=== PATIENT | female | born 1950 | race Caucasian/White ===

== ENCOUNTER 2024-10-27 11:01 | Observation (INO) ==
--- NOTE | 2024-09-25 09:51 | PAT Medication Instructions ---
Medication Instructions Date of Service September 25, 2024 Home Medications calcium carbonate 600 mg PO BID etanercept 50 mg/mL (1 mL) subcutaneous syringe (Enbrel) 50 mg subcut WK fluticasone propionate 50 mcg/actuation nasal spray,suspension 2 spray intranasal QAM hydroxychloroquine 200 mg tablet 400 mg PO QAM levothyroxine 25 mcg capsule 25 mcg PO QAM montelukast 10 mg tablet 10 mg PO QPM pantoprazole 40 mg tablet,delayed release 40 mg PO QAM cholecalciferol (vitamin D3) 25 mcg (1,000 unit) capsule 25 mcg PO QPM multivitamin 1 tab PO QAM ASK your prescriber and surgeon etanercept 50 mg/mL (1 mL) subcutaneous syringe (Enbrel) 50 mg subcut WK DO NOT take the morning of surgery calcium carbonate 600 mg PO BID multivitamin 1 tab PO QAM Take morning of surgery With a small sip of water, OTHERWISE NOTHING TO EAT OR DRINK AFTER MIDNIGHT: fluticasone propionate 50 mcg/actuation nasal spray,suspension 2 spray intranasal QAM hydroxychloroquine 200 mg tablet 400 mg PO QAM levothyroxine 25 mcg capsule 25 mcg PO QAM pantoprazole 40 mg tablet,delayed release 40 mg PO QAM Take evening before surgery calcium carbonate 600 mg PO BID montelukast 10 mg tablet 10 mg PO QPM cholecalciferol (vitamin D3) 25 mcg (1,000 unit) capsule 25 mcg PO QPM Other Notes If you have any questions please call us at [phone] or [phone] or [phone] or [phone]
--- NOTE | 2024-10-06 10:11 | Anesthesiology Consultation ---
Date of Service October 06, 2024 Assessment & Plan (1) Encounter for pre-operative examination: - Infectious disease screening: Per assessment on 10/06/24- No known recent infectious disease contacts or current infectious disease symptoms. - Outpatient joint assessment: Pt currently scheduled for inpatient pathway. If surgeon requests review for outpatient joint pathway, patient is not recommended candidate for outpatient joint program from anesthesia standpoint based on available information. - Preop EKG: Done 10/06/24 [facility]. Notes Septal infarct, age undetermined. 2020 Echo received. No comparison EKGs available per chart review. Note written to PCP regarding preop EKG- Awaiting response (Dr. Berta Soliz). Patient otherwise acceptable risk for surgery. Chart Review Chart Review: Patient seen in Pre Admission Testing Teaching & Discussion Pre-Anesthesia Teaching/Discussion Notes: Instructed NPO after midnight before surgery,except medications with 15 cc of water. Medication instructions provided according to the PAT guidelines. History Surgery Operation Date: 10/27/24 08:50 Proposed Procedures p Left Total Knee Arthroplasty - Balaji Hay MD Height/Weight Height: 5 ft 2 in Weight: 58.8 kg Allergies Allergy/AdvReac Type Severity Reaction Status Date / Time psyllium [From Metamucil] Allergy Severe Anaphylaxis Verified 09/11/24 08:06 tetracycline Allergy Intermediate Rash Verified 09/11/24 08:06 alendronate sodium Allergy Mild Nausea, Verified 10/06/24 11:33 [From Fosamax] stomach burning, muscle pain infliximab [From Remicade] Allergy Mild Chills, Verified 10/06/24 11:33 fatigue influenza virus vacc Allergy Mild Joint Verified 10/06/24 11:33 trivalent, split Pain, [From Fluzone] fatigue, swelling latex Allergy Mild Rash, Verified 10/06/24 11:33 fatigue, swelling, "cracked hands" with gloves leflunomide [From Arava] Allergy Mild Fatigue, Verified 10/06/24 11:33 mental changes, weight loss, elevated LFTs magnesium oxide Allergy Mild Rash, Verified 10/06/24 11:33 pustules methotrexate Allergy Mild Diarrhea, Verified 10/06/24 11:33 nausea, aches/pains nickel Allergy Mild Rash Verified 09/11/24 08:24 pilocarpine Allergy Mild Dizziness, Verified 10/06/24 11:33 nausea, fatigue, shakiness gold Au 198 AdvReac Mild Rash Verified 09/11/24 08:24 sulfasalazine AdvReac "Not Verified 10/06/24 11:33 effective" tocilizumab [From Actemra] AdvReac Elevated Verified 10/06/24 11:33 LFTs, "worsened" symptoms Medications Home Medications Medication Instructions Recorded Confirmed Last Taken calcium carbonate 600 mg PO BID 02/14/23 09/11/24 Unknown etanercept 50 mg/mL (1 mL) 50 mg subcut WK 02/14/23 09/11/24 Unknown subcutaneous syringe (Enbrel) fluticasone propionate 50 2 spray intranasal QAM 02/14/23 09/11/24 Unknown mcg/actuation nasal spray,suspension hydroxychloroquine 200 mg tablet 400 mg PO QAM 02/14/23 09/11/24 Unknown levothyroxine 25 mcg capsule 25 mcg PO QAM 02/14/23 09/11/24 Unknown montelukast 10 mg tablet 10 mg PO QPM 02/14/23 09/11/24 Unknown pantoprazole 40 mg tablet,delayed 40 mg PO QAM 02/14/23 09/11/24 Unknown release cholecalciferol (vitamin D3) 25 25 mcg PO QPM 08/10/24 09/11/24 Unknown mcg (1,000 unit) capsule multivitamin 1 tab PO QAM 08/10/24 09/11/24 Unknown amlodipine 2.5 mg tablet 2.5 mg PO DAILY 10/06/24 10/06/24 Unknown Past Medical History Medical History GERD (gastroesophageal reflux disease) History of valvular heart disease Echo 11/2020: Minimal AR/MR. Mild central TR. Trivial NC. Hx of colonic polyps Hypothyroidism Left knee DJD Rheumatoid arthritis Follows with Dr. White/[facility] rheumatology + [facility] "Well controlled" Seasonal allergies Exercise / Class Metabolic Activity III < 4 Walking/Shop/Light housework Past Surgical History Surgical History History of carpal tunnel release (2002) Right Hx of colonoscopy with polypectomy Hx of hysterectomy (1985) Hx of tonsillectomy As child Past Anesthesia History No Hx of Anesthesia Complications and No Family Hx of Anesthesia Complications History of PONV No Hx of PONV and No Hx of Motion Sickness Social History Smoking Status: Former smoker Do You Dip or Chew Tobacco: No Smoking End Date: Quit 1984 Hx Alcohol Use: Yes Alcohol type: wine alcohol intake frequency: a few times a month Hx Substance Use: No substance use type: does not use Review of Systems Patient denies chest pain, shortness of breath, fever, chills, cough, wheezing, palpitations. Physical Exam Vital Signs BP 147/84 P 80 TEMP 97.7 SP02 99%RA RESP 16 Physical Full cervical extension range of motion. Full TMJ range of motion. TMD 3 finger breaths Mallampati Score III Dentition: missing molar, + crown Lungs: clear throughout to auscultation Cardiac: regular rate and rhythm, I-II/ systolic murmur Spine: normal Carotid arteries: negative bruit Extremities: no LE edema Lab Results Anesthesia Preop Results Results Anesthesia Widget: WBC 4.96 K/ul (4.8-10.8) 10/06/24 Hgb 13.0 g/dl (12.0-16.0) 10/06/24 Hct 38.1 % (37.0-47.0) 10/06/24 Plt 248 K/uL (130-400) 10/06/24 Na 135 mmol/L (136-145) L 10/06/24 K 5.1 mmol/L (3.5-5.1) 10/06/24 Cl 99 mmol/L (98-107) 10/06/24 CO2 30 mmol/L (21-32) 10/06/24 BUN 25 mg/dl (6-23) H 10/06/24 Creat 0.76 mg/dl (0.6-1.2) 10/06/24 Glucose Level 95 mg/dl (70-99(Fasting)) 10/06/24 PT 10.9 Seconds (9.0-12.0) 10/06/24 PTT 30 Seconds (21-31) 10/06/24 INR 1.0 (0.9-1.1) 10/06/24 Blood Type A Positive 10/06/24 Antibody Screen NEGATIVE 10/06/24 Testing Electrocardiogram Date: 10/06/24 NSR with sinus arrhythmia at 67bpm. LAFB. Minimal voltage criteria for LVH, may be normal variant. Septal infarct, age undetermined. Chest X-Ray Date: 10/06/24 FINDINGS: Heart size and pulmonary vasculature are normal. No consolidation or pleural effusion. Lungs are hyperexpanded. There is mild scoliosis. IMPRESSION: No acute findings. Echocardiogram Date: 11/13/20 Indication listed on report: Murmur Mildly increased LV wall thickness. Grade 1 diastolic dysfunction. Minimal AR/MR. Mild central TR. Trivial NC. Other Testing Cervical spine x-ray Date: 10/06/24 FINDINGS: There is severe diffuse disc space narrowing. There is grade 1 anterolisthesis of C5 on 6 and C6 on 7. No fracture seen. No abnormal translation seen with flexion and extension. IMPRESSION: Cervical spine degenerative changes.
--- NOTE | 2024-10-19 17:33 | History & Physical Report ---
Date of Service October 19, 2024 Assessment & Plan (1) Left knee DJD: 74-year-old female with underlying rheumatoid disease with advanced left knee arthritis. She has failed conservative measures. She is having trouble getting around as a result of pain. She she like to have her left knee fixed. Plan: Will baljit take up to the operating room to do a left knee replacement. The risks and benefits of this procedure explained. Informed consent has been obtained. Her EKG showed a slight abnormality and she is getting clearance from her medical doctor. Assuming you are medically optimized we will proceed with a total knee arthroplasty. She is planned to be discharged to home with her 's assistance. She will hold her Enbrel about 2 weeks preop. Will use aspirin for DVT prophylaxis. (2) Rheumatoid arthritis: (3) Hypothyroidism: (4) GERD (gastroesophageal reflux disease): (5) History of valvular heart disease: History of Present Illness Chief Complaint: . Left knee pain. Primary Care Provider: NO PCP . The patient is a 74-year-old female with longstanding rheumatoid disease who presents now for surgical treatment left knee. She has about a 10-year history of increasing left knee pain discomfort described to gotten worse over time. She has been recently admitted to the hospital due to ambulatory dysfunction as a result. She is having more more difficulty getting around. She has failed conservative treatment. She is doing extensive her treatment for rheumatoid disease. She is using a cane to get around as a result her disability. She is ready to have her knee fixed. Allergies Allergy/AdvReac Type Severity Reaction Status Date / Time psyllium [From Metamucil] Allergy Severe Anaphylaxis Verified 09/11/24 08:06 tetracycline Allergy Intermediate Rash Verified 09/11/24 08:06 alendronate sodium Allergy Mild Nausea, Verified 10/06/24 11:33 [From Fosamax] stomach burning, muscle pain infliximab [From Remicade] Allergy Mild Chills, Verified 10/06/24 11:33 fatigue influenza virus vacc Allergy Mild Joint Verified 10/06/24 11:33 trivalent, split Pain, [From Fluzone] fatigue, swelling latex Allergy Mild Rash, Verified 10/06/24 11:33 fatigue, swelling, "cracked hands" with gloves leflunomide [From Arava] Allergy Mild Fatigue, Verified 10/06/24 11:33 mental changes, weight loss, elevated LFTs magnesium oxide Allergy Mild Rash, Verified 10/06/24 11:33 pustules methotrexate Allergy Mild Diarrhea, Verified 10/06/24 11:33 nausea, aches/pains nickel Allergy Mild Rash Verified 09/11/24 08:24 pilocarpine Allergy Mild Dizziness, Verified 10/06/24 11:33 nausea, fatigue, shakiness gold Au 198 AdvReac Mild Rash Verified 09/11/24 08:24 sulfasalazine AdvReac "Not Verified 10/06/24 11:33 effective" tocilizumab [From Actemra] AdvReac Elevated Verified 10/06/24 11:33 LFTs, "worsened" symptoms Home Medications Medication Instructions Recorded Confirmed Type calcium carbonate 600 mg PO BID 02/14/23 09/11/24 History etanercept 50 mg/mL (1 mL) 50 mg subcut WK 02/14/23 09/11/24 History subcutaneous syringe (Enbrel) fluticasone propionate 50 2 spray intranasal QAM 02/14/23 09/11/24 History mcg/actuation nasal spray,suspension hydroxychloroquine 200 mg tablet 400 mg PO QAM 02/14/23 09/11/24 History levothyroxine 25 mcg capsule 25 mcg PO QAM 02/14/23 09/11/24 History montelukast 10 mg tablet 10 mg PO QPM 02/14/23 09/11/24 History pantoprazole 40 mg tablet,delayed 40 mg PO QAM 02/14/23 09/11/24 History release cholecalciferol (vitamin D3) 25 25 mcg PO QPM 08/10/24 09/11/24 History mcg (1,000 unit) capsule multivitamin 1 tab PO QAM 08/10/24 09/11/24 History amlodipine 2.5 mg tablet 2.5 mg PO DAILY 10/06/24 10/06/24 History Past Med/Surg History Problem List Encounter for pre-operative examination Left knee DJD Left knee pain Hammertoe of left foot Medical History History of valvular heart disease Echo 11/2020: Minimal AR/MR. Mild central TR. Trivial [place]. GERD (gastroesophageal reflux disease) Seasonal allergies Rheumatoid arthritis Follows with Dr. White/Sh[facility]ana rheumatology + [facility] "Well controlled" Left knee DJD Hx of colonic polyps Hypothyroidism Surgical History Hx of colonoscopy with polypectomy History of carpal tunnel release (2002) Right Hx of hysterectomy (1985) Hx of tonsillectomy As child Social History Smoking Status: Former smoker Second Hand Exposure: No; Do You Dip or Chew Tobacco: No; Hx Alcohol Use: Yes Alcohol type: wine Hx Substance Use: No Preferred Language: Frisian Communication Ability: Effective Extension Course Counselor Required: No Beliefs That Will Affect Care: None Current Living Situation: Spouse Feels Safe at Home: Yes Assistive Devices: Cane, Denture - Upper, Glasses and Hearing Aid - Bilateral Review of Systems All systems reviewed & are unremarkable except as noted in HPI & below. Physical Exam . Physical examination reveals a pleasant middle-age female per looks been pretty good health. Examination of the left knee reveals a patient ambulates with use of a cane. She had valgus alignment to her knee which is increased with weightbearing. Range of motion about 10 degrees short of full extension to 120 Riese flexion. A moderate-sized knee joint effusion. No particular pain with hip hip motion. She is neurologically intact. Constitutional WD/WN, vitals as above Respiratory normal respiratory effort, lungs clear to auscultation Cardiovascular RRR, no murmur, no edema Gastrointestinal (Abdomen) normal bowel sounds, soft, nontender, no hepatosplenomegaly Results & Data Results & Data Laboratory Results . Diagnostic Findings . X-rays of the left knee were reviewed. She has advanced lateral compartment DJD. She has complete loss of her lateral joint space. Got diffuse osteopenia and chondrocalcinosis. PG Care Time/CCT Total # of Minutes Spent Total Time Spent with Patient: Total time spent is greater than 50% in coordination of care (as documented) at patient's floor/unit and/or counseling patient: Coding Level of Care Code None Diagnoses Left knee DJD M17.12 Rheumatoid arthritis M06.9 Hypothyroidism E03.9 GERD (gastroesophageal reflux disease) K21.9 History of valvular heart disease Z86.79
[~2024-10-27 11:01] MED LIST: BUPIVACAINE 0.25% PF 30 ML VIAL ONE; BUPIVACAINE 0.5 % 5 MG/1 ML PF 10ML VIAL ONE; LIDOCAINE 2% 2 ML VIAL/AMP(20MG/ML) INFIL ONE; MIDAZOLAM HCL 1 MG/ML 2ML VIAL ONE; PROPOFOL IV EMULSION 10 MG/ML 100 ML VIAL IV ONE
[2024-10-27] MEDS: LR 60ML/HR IV SCH (11:35)
[2024-10-27] MEDS: LR 500ML BOLUS, THEN 15ML/HR IV SCH (11:35)
[2024-10-27] MEDS: ACETAMINOPHEN 500 MG TAB PO SCH ×2 (11:36→20:39)
[2024-10-27] MEDS: CeleBREX 200 MG CAP PO SCH (11:36)
[2024-10-27] MEDS: METOCLOPRAMIDE HCL 10 MG TABLET PO SCH (11:36)
[2024-10-27] MEDS: dexAMETHasone**PF** 10 MG/ML VIAL IV SCH (11:37)
[2024-10-27] MEDS: FAMOTIDINE 20 MG TAB PO SCH (11:37)
[2024-10-27] MEDS ORDERED: ONDANSETRON INJ 2 MG/ML 2 ML VIAL IV PRN ×2 (11:52→16:05)
[2024-10-27] MEDS ORDERED: ATROPINE SULFATE 0.1 MG/ML 10ML SYR IV PRN (11:52)
--- NOTE | 2024-10-27 12:33 | History & Physical Bridge Note ---
Date of Service October 27, 2024 History & Physical Bridge Note I have examined the patient, reviewed the History & Physical and in the interval since the performance of the History & Physical I have noted the following changes of clinical significance: no changes noted
[2024-10-27] MEDS: ORTHO JOINT ANESTHETIC ONE (13:19)
[2024-10-27] MEDS ORDERED: PHENYLEPHRINE 100MCG/ML 5ML SYR ONE (13:39)
[2024-10-27] MEDS: ROPIV 0.5% 246mg, Ketorolac 30mg, EPINEPHrine 0.5mg in NSS INFIL SCH (14:03)
--- NOTE | 2024-10-27 14:42 | Operative Report ---
PG Post Operative Report Pre & Post Diagnosis Operation Date: 10/27/24 12:30 Pre-Op Diagnosis: Left knee degenerative joint disease Post-Op Diagnosis: Left knee degenerative joint disease I identified the patient and participated in the time-out.: Yes Procedure Operation Date: 10/27/24 12:30 Actual Procedures p Left Total Knee Arthroplasty(Left) - Balaji Hay MD Surgeon Balaji Hay MD Food Service Driver True Da Silva PA-C Estimated Blood Loss 50 Findings Consistent with Post-Op Diagnosis Specimens Left knee sent for pathology. Anesthesia Type Spinal MAC Complications none Disposition Accompanied Patient To Recovery: No Description of Procedure Operative implants consist of: 1 Bell & Nephew journey 2 size 4 left posterior stabilized femoral component. 2. Bell [employer] Nephew journey 2 size 3 tibial tray. 3. 10 mm posterior stabilized polyethylene insert. 4. 29 x 9 all poly patella. The patient was taken the op room, identified, placed on the operating table in the supine position. All conductors were appropriately padded. IV antibiotics fibra anesthesia team. Spinal anesthetic and adductor canal block had provided in the holding area. A Lakhani catheter was placed in sterile fashion with a left phytate was then placed in the left lower extremities then prepped and draped in usual sterile fashion. The left leg was elevated and exsanguinated with use of an Esmarch and a turn was placed at 300 mmHg. An anterior approach left knee was then performed to longitudinal incision centered over the patella. Sharp dissection Subcutaneous Tissue down the Extensor Mechanism. A Medial Parapatellar Arthrotomy Incision Was Made. Some Subperiosteal Dissection Was Carried out Medially. The Fat Pad Was Dissected from the Patella Tendon. Lateral Patellofemoral Ligament Was Released. Patella Subluxated Laterally and the Knee Was Flexed. The Osteophytes Were Taken off Distal Femur. The ACL and PCL Were Then Released from Distal Femur the Tibia Subluxate Anteriorly. The External Tibial Alignment Jig Was Then Placed on the Anterior Face of the Tibia and Adjusted a Maximum Output Medially. Proximal Tibial Cut Was Then Made Remove about 2 to 3 Mm of Bone from the Medial Side. The Tibia Was Sized to a Size 3. Attention Drawn the Femur. The Distal Femur Examined with a Sharp Drill. Intramedullary Canal Was Suction. A Left 5 Degree Valgus Cutting Guide Was Placed. The Distal Femoral Cutting Block Was Pinned in Place. The Distal Femoral Cut Was Made to Take an Additional 2 Mm of Bone off Distal Femur. The Femur Was Then Sized to a Size 4. The AP Cutting Block Was Pinned Parallel to the Epicondylar [place] Which Was 6 Degrees of External Rotation. The Anterior Cut, Anterior Cord, Posterior Cut, Posterior Chamfer Cut, Anterior Chamfer Cuts Were Made. The Knee Was Flexed. The Remnants of the Medial and Lateral Menisci Were Excised. The Osteophytes Taken off the Posterior Aspect of the Femur. The femoral component was then placed. The milling device was then used to create the area for the trochlea. Trochlear template was placed. The tibial tray was then pinned in [place] external rotation and the drill and stem punch used to create defect in the proximal tibia for the tibial tray. Knee was then trialed and the 10 mm insert fit most appropriately. Attention drawn the patella. Patella was cleaned of all soft tissues. Patella thickness measured 20 mm in thickness was cut down to 13. Was sized to a size 29 patella. The lug holes were drilled for the 29 patella. Lateral osteophytes removed. Patella button was placed. Knee was taken through range of motion and patella tracked nicely with no thumbs test. Attention drawn to placement permanent components. NuPrep all trial components were removed. Bone plug was placed into the distal femur limb of blood loss. A double batch [place]os G cement was mixed. A Bell & Nephew size 4 left posterior stabilized femoral component, a size 3 tibial tray, 10 mm posterior box polyethylene insert, and a 29 x 9 patella were then cemented in place. The knee was brought out into full extension till cement hardened. Final cement check was then performed. The pericapsular tissues were injected with total 100 cc of Ortho mix. The patient did receive 1 g of tranexamic acid. The tourniquet was then let down for final tourniquet time 62 minutes. Hemostasis assured with electrocautery. Extensor Meclomen closed with combinati on 1 PDS suture #1 Vicryl suture in a [id number] fashion. Extensor Meclomen checked found to be intact. Subcutaneous tissue then closed with 2 Dexon suture in a buried interrupted fashion skin was closed skin jus. Leg was then cleaned and dried and a sterile dressing with Xeroform, 4 fours, ABD pad, sterile cast padding, Mason bandage were applied. The patient then transferred to the recovery room in stable condition. Patient tolerated procedure well and there were no complications. True Da Silva, my physician warehouse assistant, was present for the entire procedure. Food Service Driver's assistance was required for proper patient positioning, prepping and draping, surgical exposure, retraction, perform the technical details of the operation, placement of the implants, and closure of the incision site. I attest to the content of the Intraoperative Record and any orders documented therein. Any exceptions are noted below.
--- NOTE | 2024-10-27 14:54 | XRay Report ---
XR knee LT 1 or 2V routine CLINICAL HISTORY: Surgical Post Op COMPARISON: None FINDINGS: Left knee prosthesis shows no hardware complication. There is expected soft tissue gas. Sk in jus are present. IMPRESSION: Unremarkable postoperative exam. ACT 112: Negative or not required by law. Electronically signed by: Luca Short M.D. 10/27/2024 2:52 PM
--- NOTE | 2024-10-27 15:21 | Anesthesiology Progress Note ---
Date of Service October 27, 2024 Anesthesia Post Procedure Vital Signs Vital Signs: Temp Pulse Pulse Resp BP Pulse Ox O2 Del Method 10/27/24 15:15 74 16 121/67 97 Room Air 10/27/24 15:05 70 18 123/64 97 Room Air 10/27/24 14:55 36.3 C L 69 14 119/65 98 Room Air 10/27/24 14:45 71 18 113/62 98 Room Air 10/27/24 14:38 36.5 C 73 18 110/58 L 99 Room Air 10/27/24 11:29 36.8 C 76 18 163/88 H 96 Room Air Pain Intensity Generalized: Pain Intensity: 8 Transfer of Care Handoff Completed per policy Notes Mental Status: alert / awake / arousable Patient Amnestic to Procedure: Yes Nausea / Vomiting: adequately controlled Pain: adequately controlled Airway Patency, RR, SpO2: stable & adequate BP & HR: stable & adequate Hydration State: stable & adequate Anesthetic Complications: no major complications apparent and Pt Satisfied with anesthetic care
[2024-10-27] MEDS ORDERED: ALUMINUM/MAGNESIUM SUSP 30 ML UDC PO PRN (16:05)
[2024-10-27] MEDS ORDERED: SENNA 8.6 MG TAB PO PRN (16:05)
[2024-10-27] MEDS ORDERED: NALOXONE HCL 0.4 MG/1 ML VIAL/CARP IV PRN (16:05)
[2024-10-27] MEDS ORDERED: METOCLOPRAMIDE HCL INJ 5 MG/ML 2 ML VIAL IV PRN (16:05)
[2024-10-27] MEDS ORDERED: MAGNESIUM HYDROXIDE SUSP 30 ML UDC PO PRN (16:05)
[2024-10-27] MEDS ORDERED: HYDROmorphone INJ 0.5 MG/0.5 ML SYR IV PRN (16:05)
[2024-10-27] MEDS: SODIUM CHLORIDE 0.9% 1,000 ML IV SCH (16:46)
[2024-10-27] MEDS: ASCORBIC ACID 500 MG TAB PO SCH (17:28)
[2024-10-27] MEDS: KETOROLAC TROMETHAMINE 15 MG/ML VIAL IV SCH (17:28)
[2024-10-27] MEDS: DOCUSATE SODIUM 100 MG CAP PO SCH (20:38)
[2024-10-27] MEDS: MONTELUKAST SODIUM 10 MG TABLET PO SCH (20:38)
[2024-10-27] MEDS: CHOLECALCIFEROL 25 MCG (1000 UNITS) TAB PO SCH (20:38)
[2024-10-27] MEDS: ASPIRIN 81 MG ECTAB PO SCH (20:38)
[2024-10-27] MEDS: SENNA 8.6 MG TAB PO SCH (20:39)
[2024-10-27] MEDS: TRANEXAMIC ACID / 0.7% NACL 1,000 MG/100 ML BAG IV SCH (20:50)
[2024-10-27] MEDS: CALCIUM CARBONATE 1250MG TAB PO SCH (22:37)
[2024-10-28] MEDS: LEVOTHYROXINE SODIUM 25 MCG TABLET PO SCH (05:38)
[2024-10-28 06:56] LABS: Hematocrit (blood only) 31.4 % (37.0-47.0); Hemoglobin 10.9 g/dl (12.0-16.0); Mean Corpuscular Hemoglobin 31.2 pg (25.0-34.0); Mean Corpuscular Volume 90.0 fL (80.0-100.0); Platelet Count 226 K/uL (130-400); RDW Standard Deviation 40.7 fL (36.4-46.3); Red Blood Count 3.49 M/uL (4.20-5.40); White Blood Count 13.63 K/ul (4.8-10.8)
[2024-10-28 07:17] LABS: Anion Gap 5.0 (3-11); Blood Urea Nitrogen 19.0 mg/dl (6-23); Calcium 8.8 mg/dl (8.6-10.3); Carbon Dioxide 29.0 mmol/L (21-32); Chloride 101.0 mmol/L (98-107); Creatinine Clr Calc Pharmacy 48.5 ml/min; Glucose 94.0 mg/dl (70-99(Fasting)); Potassium 4.1 mmol/L (3.5-5.1); Sodium 135.0 mmol/L (136-145)
[2024-10-28 07:28] VITALS: BP 131/84; PULSE 78; RESP 18; TEMP 97.5; O2SAT 98
[2024-10-28] MEDS: dexAMETHasone 10 MG in SYRINGE 0 ML IV SCH (08:41)
[2024-10-28] MEDS: FLUTICASONE PROPIONATE NA SPR 16 GM BTL NAE SCH (08:45)
[2024-10-28] MEDS: MULTIVITAMIN TAB PO SCH (08:46)
[2024-10-28] MEDS: HYDROXYCHLOROQUINE SULFATE 200 MG TAB PO SCH (08:46)
--- NOTE | 2024-10-28 13:48 | Orthopedic Progress Note ---
Date of Service October 28, 2024 Assessment & Plan (1) Status post left knee replacement: Plan: 74-year-old female postop day 1 from a left knee replacement doing pretty well. Pain is controlled. Hoping to go home. Plan: 1. DVT prophylaxis including thigh-high teds, SCDs, aspirin twice daily. 2. PT/OT. Weight-bear as tolerated left total knee protocol. 3. Pain control. Doing okay with current pain regimen. 4. Disposition. Plan is to discharge to home with some home health after therapy today. Admission and Anticipated Discharge Date Admission Date: October 27, 2024 Subjective 74-year-old female with underlying rheumatoid disease postop day 1 from a left knee replacement. She is doing pretty well. Had a reasonable night. Pains controlled. No chest pain or shortness of breath. Not feeling dizzy or light headed. Want to go home today. Physical Exam Physical Exam: Physical examination is a pleasant middle-age female. She is lying in bed looks pretty comfortable. Examination of the left leg reveals dressing be clean dry and intact. She can dorsiflex and plantarflex her foot appropriately. She is neurologically intact. Respiratory: normal respiratory effort, lungs clear to auscultation Cardiovascular: RRR, no murmur, no edema Gastrointestinal (Abdomen): normal bowel sounds, soft, nontender, no hepatosplenomegaly Results & Data Vital Signs (Past 12 Hours) Vital Signs Temp Pulse Resp BP Pulse Ox O2 Del Method 10/28/24 07:26 36.4 C L 78 18 131/84 98 Room Air 10/28/24 03:00 36.5 C 74 20 113/74 97 Room Air Laboratory Results Hemoglobin is 10.9. Hematocrit 31.4.
== END 2024-10-28 12:21 | disposition home health service (06) ==
LOC: ASU 11:01 → 3E 11:01